=== PATIENT | female | born 1955 | race Caucasian/White ===

== ENCOUNTER → 2022-03-30 | Outpatient (CLI) | payer MEDICARE, BC ==
[2022-03-30 12:21] LABS: ALBUMIN 4.2 g/dL (3.4-4.8); POTASSIUM 4.3 mmol/L (3.5-5.1)
[2022-03-30 12:23] LABS: CALCIUM 9.4 mg/dL (8.3-10.5)
[2022-03-30 12:24] LABS: TOTAL PROTEIN 6.9 g/dL (6.2-8.1)
[2022-03-30 12:26] LABS: TOTAL BILIRUBIN 0.6 mg/dL (0.2-1.2)
== END ==
LOC: LAB 11:47
PROVIDERS: Nurse Practitioner Family
DX: U07.1 COVID-19 (principal)

== ENCOUNTER → 2022-08-05 | Outpatient (CLI) | payer MEDICARE, BC ==
[2022-08-05 12:35] LABS: BASO # 0.07 K/mm3 (0.02-0.10); EOS # 0.08 K/mm3 (0.04-0.40); EOS % 1.2 % (1.0-5.0); HEMATOCRIT 40.8 % (37.0-47.0); LYMPH# 1.62 K/mm3 (1.50-4.00); MEAN CELL VOLUME 91 fl (78-100); MEAN CORPUSCULAR HEMOGLOBIN 29 pg (27-31); MEAN CORPUSCULAR HGB CONC 32 g/dL (33-37); MEAN PLATELET VOLUME 11.3 fl (7.4-10.4); MONO # 0.42 K/mm3 (0.20-0.80); NEU # 4.27 K/mm3 (1.40-6.50); PLATELET COUNT 177 K/mm3 (130-400); RED BLOOD COUNT 4.51 M/mm3 (4.10-5.30); RED CELL DISTRIBUTION WIDTH 12.9 % (11.5-14.5); WHITE BLOOD COUNT 6.5 K/mm3 (4.8-10.8)
[2022-08-05 12:42] LABS: ALBUMIN 4.4 g/dL (3.4-4.8); POTASSIUM 3.6 mmol/L (3.5-5.1)
[2022-08-05 12:43] LABS: CALCIUM 9.4 mg/dL (8.3-10.5)
[2022-08-05 12:45] LABS: TOTAL PROTEIN 7.1 g/dL (6.2-8.1)
[2022-08-05 12:46] LABS: TOTAL BILIRUBIN 0.8 mg/dL (0.2-1.2)
[2022-08-05 12:51] LABS: MAGNESIUM 1.6 mg/dL (1.60-2.60)
[2022-08-05 13:46] LABS: ERYTHROCYTE SEDIMENTATION RATE 14 mm/hr (0-30)
== END ==
LOC: LAB 12:13
PROVIDERS: Internal Medicine
DX: E03.9 Hypothyroidism, unspecified (principal); I10 Essential (primary) hypertension; K90.9 Intestinal malabsorption, unspecified; E78.2 Mixed hyperlipidemia; K21.9 Gastro-esophageal reflux disease without esophagitis; K22.2 Esophageal obstruction; E05.20 Thyrotoxicosis with toxic multinodular goiter without thyrotoxic crisis or storm

== ENCOUNTER → 2024-02-14 | Outpatient (CLI) | payer MEDICARE, BC ==
[2024-02-14 09:11] LABS: BASO # 0.05 K/mm3 (0.02-0.10); EOS # 0.13 K/mm3 (0.04-0.40); EOS % 2.1 % (1.0-5.0); HEMATOCRIT 37.9 % (37.0-47.0); HEMOGLOBIN 12.4 g/dL (12.5-16.0); LYMPH# 1.55 K/mm3 (1.50-4.00); MEAN CELL VOLUME 90 fl (78-100); MEAN CORPUSCULAR HEMOGLOBIN 29 pg (27-31); MEAN CORPUSCULAR HGB CONC 33 g/dL (33-37); MEAN PLATELET VOLUME 11.5 fl (7.4-10.4); MONO # 0.41 K/mm3 (0.20-0.80); PLATELET COUNT 181 K/mm3 (130-400); RED BLOOD COUNT 4.22 M/mm3 (4.10-5.30); WHITE BLOOD COUNT 6.1 K/mm3 (4.8-10.8)
[2024-02-14 09:54] LABS: ALBUMIN 4.2 g/dL (3.4-4.8)
[2024-02-14 09:55] LABS: CALCIUM 9.4 mg/dL (8.3-10.5)
[2024-02-14 09:56] LABS: TOTAL PROTEIN 6.5 g/dL (6.2-8.1)
[2024-02-14 09:58] LABS: TOTAL BILIRUBIN 0.6 mg/dL (0.2-1.2)
[2024-02-14 10:03] LABS: MAGNESIUM 1.73 mg/dL (1.60-2.60)
[2024-02-22 13:55] LABS: T3 FREE 2.8
== END ==
LOC: LAB 08:40
PROVIDERS: Internal Medicine
DX: I10 Essential (primary) hypertension (principal); E05.20 Thyrotoxicosis with toxic multinodular goiter without thyrotoxic crisis or storm; K90.9 Intestinal malabsorption, unspecified; E78.2 Mixed hyperlipidemia; R73.9 Hyperglycemia, unspecified; L68.0 Hirsutism

== ENCOUNTER → 2024-03-20 | Outpatient (CLI) | payer MEDICARE, BC | LOC: MAMMO 09:50 | DX: Z12.31 Encounter for screening mammogram for malignant neoplasm of breast (principal) ==